=== PATIENT | female | born 1965 | race Caucasian/White ===

== ENCOUNTER 2023-10-14 09:48 | Outpatient (CLI) | payer OTHER, SELFPAY ==
--- NOTE | 2023-10-14 10:00 | CT_ITS ---
WS: [id number] CT HEAD TECHNIQUE: Noncontrast CT of the head obtained from the skullbase to the vertex. CLINICAL INFORMATION: R26.9 - Unspecified abnormalities of gait and mobility COMPARISON: CT 04/2019 DLP: 1097.[address] scans at [facility] use at least one of these dose optimization techniques: automated e xposure control; mA and/or kV adjustment per patient size (includes targeted exams where dose is matc hed to clinical indication); or iterative reconstruction. FINDINGS: No evidence of intracranial hemorrhage or mass effect. Ventricular system and basal cisterns are das nt. Mild small vessel changes with mild frontal parenchymal volume loss. No extra-axial fluid collect ions. No evidence of mass or mass effect. Tiny chronic appearing infarct RIGHT caudate. Paranasal sinuses and mastoid air cells are well aerated. .Normal visualized soft tissues. IMPRESSION: 1. No evidence of intracranial hemorrhage or mass effect. 2. Mild small vessel changes. Mild frontal parenchymal volume loss progressed since 2019. 3. No acute intracranial findings.
== END 2023-10-14 09:49 | disposition home or self-care (01) ==
LOC: RAD 09:49
PROVIDERS: Visit Provider Specialist
DX: R26.9 Unspecified abnormalities of gait and mobility (principal); G40.109 Localization-related (focal) (partial) symptomatic epilepsy and epileptic syndromes with simple partial seizures, not intractable, without status epilepticus
CPT/HCPCS: 70450

== ENCOUNTER → 2023-11-26 07:42 | Outpatient (BNVA) | payer OTHER, SELFPAY | PROVIDERS: Visit Provider Specialist | DX: G40.109 Localization-related (focal) (partial) symptomatic epilepsy and epileptic syndromes with simple partial seizures, not intractable, without status epilepticus (principal); R26.9 Unspecified abnormalities of gait and mobility | CPT/HCPCS: 99214 ==

== ENCOUNTER → 2024-11-24 11:05 | Outpatient (BNVA) | payer OTHER, SELFPAY | PROVIDERS: PCP Nurse Practitioner Family; Visit Provider Specialist | DX: G40.109 Localization-related (focal) (partial) symptomatic epilepsy and epileptic syndromes with simple partial seizures, not intractable, without status epilepticus (principal); R26.9 Unspecified abnormalities of gait and mobility | CPT/HCPCS: 99214 ==